=== PATIENT | female | born 1995 | race African-American/Black ===

== ENCOUNTER 2019-03-20 02:01 | Emergency (ER) | payer MEDICAID ==
[~2019-03-20] VITALS: Ht 177.8 cm; Wt 77.1 kg
[2019-03-20 02:14] VITALS: BP 137/89
[2019-03-20] MEDS ORDERED: ACETAMINOPHEN/CODEINE#3 (300/30mg) TAB PO ONE (03:45)
[2019-03-20] MEDS ORDERED: BACLOFEN 10 MG TAB PO ONE (03:45)
== END 2019-03-20 05:03 | disposition home or self-care (01) ==
LOC: EDBD 02:04 → ER 02:04
DX: S01.81XA Laceration without foreign body of other part of head, initial encounter (principal); Y04.2XXA Assault by strike against or bumped into by another person, initial encounter; Y93.89 Activity, other specified; Y92.89 Other specified places as the place of occurrence of the external cause; Y99.8 Other external cause status
CPT/HCPCS: 12011; 36415; 70450; 84702

== ENCOUNTER 2019-03-24 08:33 | Emergency (ER) | payer MEDICAID ==
[~2019-03-24] VITALS: Ht 177.8 cm; Wt 72.6 kg
[2019-03-24 09:41] VITALS: BP 119/82
[2019-03-24] MEDS ORDERED: IBUPROFEN 800 MG TAB PO ONE (11:15)
[2019-03-24] MEDS ORDERED: cefTRIAXone SOD 1,000 MG VL IM ONE (11:15)
== END 2019-03-24 11:26 | disposition home or self-care (01) ==
LOC: ER 08:35
DX: S01.81XD Laceration without foreign body of other part of head, subsequent encounter (principal); X58.XXXD Exposure to other specified factors, subsequent encounter